=== PATIENT | female | born 1985 | race Caucasian/White ===

== ENCOUNTER 2021-08-17 09:41 | Outpatient (CLI) | payer BC, SELFPAY ==
--- NOTE | ~2021-08-17 | US_ITS ---
EXAMINATION: US OB <=14 wk fetus w TV EXAM DATE: 08/17/2021 10:25 INDICATION: Miscarriage, vaginal bleeding. 1st trimester. TECHNIQUE: Pelvic obstetrical transabdominal sonogram was performed by a technologist. There are mu ltiple grayscale and Doppler images available for interpretation. There are no earlier studies of th is gestation for comparison. FINDINGS: Uterus measures 10.0 x 5.0 x 5.7 cm, and is morphologically normal. There is no intrauterin e identified. Endometrial stripe is within normal limits. There is a small nabothian cyst. There is no free pelvic fluid. Right adnexa: The ovary measures 2.8 x 1.8 x 2.8 cm and is morphologically normal. Left adnexa: The ovary measures 2.7 x 1.6 x 2.6 cm and is morphologically normal. IMPRESSION: No intrauterine or extrauterine identified. Reviewed, dictated and finalized at location A.
== END 2021-08-17 09:42 | disposition home or self-care (01) ==
PROVIDERS: Visit Provider Obstetrics & Gynecology
DX: O02.1 Missed abortion (principal); Z3A.00 Weeks of gestation of pregnancy not specified
CPT/HCPCS: 76801; 76817